=== PATIENT | male | born 1985 | race Two or more races ===

== ENCOUNTER 2017-07-26 19:05 | Emergency (ER) | payer SELFPAY ==
[~2017-07-26] VITALS: Ht 162.6 cm; Wt 77.1 kg
--- NOTE | 2017-07-26 19:41 | Emergency Room Report ---
History of Present Illness General Chief Complaint: Pain Source: Patient Present Illness HPI 32-year-old male patient presents ER complaining of nasal trauma. Reports that his playing soccer on Wednesday and got an elbow to the nose. Denies bleeding from nose. Denies headache or loss of consciousness. Reports swelling and nasal pain since that time. Reports been taking Tylenol for relief of pain symptoms with mild relief. denies fever, chest pain or shortness breath. Denies vision changes. Denies other acute symptoms at this time. Allergies: Coded Allergies: No Known Allergies (Unverified , 07/26/17) Patient History Past Medical History: see triage record Reviewed Nursing Documentation: PMH: Agreed; PSxH: Agreed Nursing Documentation-PMH Past Medical History: No History, Except For Review of Systems All Other Systems: negative except mentioned in HPI Physical Exam Vital Signs Date Time Temp Pulse Resp B/P (MAP) Pulse Ox O2 Delivery O2 Flow Rate FiO2 07/26/17 19:15 98.1 83 16 125/88 96 Room Air 98.1 Sp02 EP Interpretation: reviewed, normal General Appearance: well appearing, no apparent distress, alert, GCS 15, non- toxic Head: normocephalic, atraumatic, other - no frontal or maxillary sinus TTP bilaterally Eyes: bilateral eye normal inspection, bilateral eye PERRL ENT: hearing grossly normal, normal pharynx, no angioedema, normal voice, TMs + canals normal, uvula midline, moist mucus membranes, other - external nose: Swelling and mild ecchymosis noted on left side of lateral nose near nasal bridge, mild swelling on right side of external nose; left nasal canal: mild erythema and edema, no septal swelling or mass, no blue discoloration; right nasal canal: normal Neck: full range of motion Respiratory: lungs clear, normal breath sounds, no rhonchi, no respiratory distress, no accessory muscle use, no wheezing, speaking full sentences Cardiovascular #1: regular rate, rhythm, no edema Musculoskeletal: back normal, digits/nails normal, gait/station normal, normal range of motion, non-tender Neurologic: alert, oriented x3, responsive, motor strength/tone normal, sensory intact Psychiatric: mood/affect normal Medical Decision Making PA Attestation Dr. Rose is my supervising Physician whom patient management has been discussed with. Diagnostic Impression: Primary Impression: Nasal trauma ER Course Pt. presents to the ED c/o . Ddx considered but are not limited to nasal fracture, septal hematoma, epistaxis , deviated septum. Vital signs: are WNL, pt. is afebrile ordered pain medication and maxillofacial CT. ER COURSE: On physical exam septum appears intact, no blue discoloration or swelling, low suspicion for septal hematoma. CT maxillofacial shows no acute trauma or septal deviation. copy of results provided to patient. Instructed patient to followup with PCP And request referral to ENT. Apply cool compresses to nose for swelling symptoms. Take Tylenol for pain and inflammation. DISCHARGE: Rx provided for Tylenol At this time pt is stable for d/c to home. Patient is resting comfortably, in no acute distress, nontoxic appearing, talking without difficulty. Patient to take medications as instructed Will provide with patient care instructions and any necessary prescriptions. Care plan and follow-up instructions provided. Patient instructed to follow-up with primary care provider in 3 - 5 days. Patient questions asked and answered. Patient reports understanding and agreement to treatment plan. ER precautions given. Patient instructed to return to ER immediately for any new or worsening of symptoms including but not limited to increasing SOB, persistent fever, chest pain, intractable vomiting. - Please note that this Emergency Department Report was dictated using [employer] scenic arts technology software, occasionally this can lead to erroneous entry secondary to interpretation by the dictation equipment. CT/MRI/US Diagnostic Results CT/MRI/US Diagnostic Results : Imaging Test Ordered: maxillofacial CT Impression FINDINGS: The maxillary, ethmoid, sphenoid and frontal sinuses are clear bilaterally. There is no mucoperiosteal thickening or air-fluid levels. The osteomeatal units are well aerated bilaterally. The turbinates are normal. The nasal septum is midline. No bony erosions are seen. IMPRESSION: Normal CT of the paranasal sinuses. Last Vital Signs Date Time Temp Pulse Resp B/P (MAP) Pulse Ox O2 Delivery O2 Flow Rate FiO2 07/26/17 19:15 98.1 83 16 125/88 96 Room Air 98.1 Disposition: HOME, SELF-CARE Condition: Stable Scripts Acetaminophen* (TYLENOL EXTRA STRENGTH*) 500 Mg Tablet 500 MG ORAL Q8H PRN for Prn Headache/Temp > 101, #30 TAB 0 Refills Prov: Kal Lucia 07/26/17 Referrals: NOT CHOSEN IPA/MD,REFERRING (PCP) Patient Instructions: Deviated Septum Additional Instructions: Followup with primary care provider in 3 -5 days. Request referral to ENT as needed. Take medications as directed. Apply cool compresses for swelling. Patient questions asked and answered. ER precautions given, patient instructed to return to ER immediately for any new or worsening of symptoms. Kal Lucia Jul 26, 2017 19:41
[2017-07-26] MEDS ORDERED: Ketorolac 30mg Inj IM ONE (19:45)
[2017-07-26] MEDS ORDERED: TYLENOL EXTRA500 MG ORAL (20:19)
[2017-07-26 20:30] VITALS: BP_SYST 115; BP_DIAS 79; BP_DIAS 80
--- NOTE | 2017-07-27 09:43 | Diagnostic Imaging Report ---
Indications: Pain, status post sports injury Technique: Spiral images obtained through the facial bones. No IV contrast utilized. Multiplanar reconstructions were generated.Total dose length product 557 mGycm. CTDIvol(s) 28 mGy. Dose reduction achieved using automated exposure control Comparison: none Findings: Medial deviation of the lamina papyracea on the right may be developmental or on the basis of old injury. No acute fractures. No worrisome sinus opacification. Intact dentition. No significant soft tissue swelling. The facial soft tissues are unremarkable. Impression: No acute abnormality This agrees with the preliminary interpretation provided overnight by [facility] teleradiology service. The CT scanner at [facility] is accredited by the [employer] and the scans are performed using protocols designed to limit radiation exposure to as low as reasonably achievable to attain images of sufficient resolution adequate for diagnostic evaluation.
== END 2017-07-26 20:29 | disposition home or self-care (01) ==
LOC: EMR 19:35
DX: S09.8XXA Other specified injuries of head, initial encounter (principal); W51.XXXA Accidental striking against or bumped into by another person, initial encounter; Y93.66 Activity, soccer; Y92.9 Unspecified place or not applicable
CPT/HCPCS: 70486; 96372; 99284; J1885